=== PATIENT | female | born 2005 | race Caucasian/White ===

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

== ENCOUNTER 2025-05-23 12:15 | Outpatient (CLI) | payer OTHER, BC, SELFPAY ==
--- NOTE | 2025-05-23 12:21 | US_ITS ---
PROCEDURE INFORMATION: Exam: US Left Breast, Complete MG Radiologist Consultation Exam date and time: 05/23/2025 12:14 PM Age: 19 years old Clinical indication: Mass, lump, or swelling and induration of breast; Left; lt breast pain TECHNIQUE: Imaging protocol: Complete ultrasound of all four quadrants of the left breast and the retroareolar regions, including ultrasound of the axilla when performed. COMPARISON: No relevant prior studies available. FINDINGS: ULTRASOUND: Breast ultrasound findings: Sonographic images of the left 3 o'clock axis 6 cm from the nipple where the patient reports a palpable abnormality demonstrates focal skin thickening and subcutaneous edema. No underlying solid or cystic masses seen. No architectural distortion or acoustic shadowing. Evaluation of the left axilla demonstrates a 1.6 cm axillary lymph node with a diminutive fatty hilum suggestive of a benign reactive lymph node. IMPRESSION: Findings on sonography are suggestive of focal cellulitis. No underlying abscess. Potential antibiotic therapy is recommended. Following potential antibiotic therapy, follow-up targeted left upper outer quadrant and axillary sonography are recommended to ensure resolution of the findings ASSESSMENT: BI-RADS Category 3: Probably benign.
== END 2025-05-23 23:59 ==
LOC: RAD 12:17
PROVIDERS: PCP Nurse Practitioner Family; Visit Provider Nurse Practitioner Family
DX: N64.4 Mastodynia (principal); N63.25 Unspecified lump in the left breast, overlapping quadrants
CPT/HCPCS: 76641